=== PATIENT | male | born 2000 | race Two or more races ===

== ENCOUNTER → 2022-08-22 08:51 | Outpatient (BNVA) | payer SELFPAY | PROVIDERS: PCP Family Medicine; Visit Provider Physician Assistant Medical | DX: Z02.79 Encounter for issue of other medical certificate (principal) ==

== ENCOUNTER 2023-08-19 22:04 | Emergency (ER) | payer OTHER, SELFPAY ==
--- NOTE | ~2023-08-19 | CT_ITS ---
EXAMINATION: CT ABDOMEN AND PELVIS WITHOUT CONTRAST CLINICAL INFORMATION: Left-sided abdominal pain COMPARISON: None available. TECHNIQUE: Multidetector volumetric imaging was performed from the superior aspect of the liver through the pubic symphysis. Sagittal and coronal reformatted images were obtained on the technologist's workstation. This CT examination was performed using dose optimization techniques as appropriate, variously including the following: *Automated exposure control *Adjustment of mA and/or kV according to patient size (this includes techniques or standardized protocols for targeted exams where dose is matched to indication/reason for exam; i.e. extremities or head) *Use of iterative reconstruction technique DLP: 465 mGy-cm FINDINGS: LUNG BASES: The visualized lung bases are unremarkable. LIVER, GALLBLADDER, AND BILIARY TREE: The liver is mildly enlarged at 18 cm in cephalocaudad dimension. Attenuation is normal. No focal hepatic lesion or biliary ductal dilatation is present. The gallbladder is unremarkable with no evidence of radiopaque gallstones, gallbladder wall thickening, or obvious pericholecystic inflammatory changes. PANCREAS: Unremarkable. SPLEEN: Spleen is mildly enlarged at 12.5 cm. ADRENAL GLANDS: Unremarkable. KIDNEYS AND URETERS: The kidneys are normal in size, shape, and attenuation. No hydronephrosis, hydroureter, or calculi seen. No perinephric stranding. BLADDER: Unremarkable. GASTROINTESTINAL TRACT: The small and large bowel are unremarkable. The appendix is unremarkable. ABDOMINAL WALL: No significant hernia is appreciated. LYMPH NODES: Normal. VASCULAR: Unremarkable. PELVIC VISCERA: Mildly prominent prostate. Seminal vesicles appear normal. OSSEOUS STRUCTURES: Unremarkable. CT/CT abdomen pelvis wo IV con IMPRESSION: 1. A cause for the patient's abdominal pain has not been found. 2. Incidental note made of mild hepatosplenomegaly. Fleischner guidelines were followed.
[2023-08-19 22:28] VITALS: BP 113/65; PULSE 69; RESP 18; TEMP 36.8; O2SAT 97; BMI 24.9
[2023-08-19 22:54] LABS: MANUAL DIFF FLAG NO
[2023-08-19 22:55] LABS: Basophils Percent Auto 0.4 % (0-2); Eosinophils Absolute Auto 0.2 X10*3/uL (0.0-0.4); Eosinophils Percent Auto 4.3 % (0-4); Hematocrit 42.2 % (42.0-52.0); Lymphocytes Percent Auto 36.3 % (20-40); Mean Corpuscular HGB Conc 30.8 g/dl (31.0-36.0); Mean Corpuscular Hemoglobin 22.8 pg (27.0-33.0); Mean Corpuscular Volume 73.9 fL (80.0-98.0); Mean Platelet Volume 10.2 fL (9.4-12.4); Monocytes Absolute Auto 0.5 X10*3/uL (0.1-1.2); Monocytes Percent Auto 9.1 % (2-11); Neutrophils Absolute Auto 2.8 x10*3/uL (2.0-8.3); Neutrophils Percent Auto 49.9 % (45-73); Platelet Count 188 X10*3/uL (160-400); Red Blood Count 5.71 X10*6/uL (4.60-5.80); Red Cell Distribution Width 12.6 % (11.0-16.0); White Blood Count 5.6 X10*3/uL (4.8-10.8)
[2023-08-19 22:56] LABS: Appearance Urine Clear; Color Urine Yellow; Glucose Urine UA Negative (Negative); Leukocyte Esterase Urine Negative (Negative); Nitrite Urine Negative (Negative); Specific Gravity - Urine >= 1.030 (1.005-1.025); UMIC TRIGGER UACC YES; Urine Blood Negative (Negative); Urine Ketones Trace mg/dL (Negative); Urine Protein 30 (1+) mg/dL (Neg-Trace)
[2023-08-19 23:01] LABS: Bacteria Urine None Seen (None Seen); Hyaline Casts Urine 0-2 /LPF (0-2); RBC Urine 0-2 /HPF (0-2); Squamous Epithelial Cell Urine 0-2 /HPF (0-2); WBC Urine 0-5 /HPF (0-5)
[2023-08-19 23:10] LABS: Anion Gap 12 (12-20)
--- NOTE | 2023-08-19 23:10 | ED.ABDPAIN ---
HPI - Abdominal Pain General Chief Complaint: Abdominal Pain Stated Complaint: abd pain Time Seen by Provider: 08/19/23 23:10 Source: patient Mode of arrival: ambulatory Limitations: no limitations History of Present Illness HPI narrative: Patient has significant past medical history noticed pain in the left middle lower abdomen for last 3 days increases after eating food no nausea no vomiting no diarrhea no fever or chills no urinary symptoms does have history of constipation but moving his bowels normally lately Related Data Allergies Allergy/AdvReac Type Severity Reaction Status Date / Time No Known Allergies Allergy Unverified 07/09/20 17:01 Review of Systems Review of Systems Yes all other systems are reviewed and are negative [facility] Social History Social History Advance Directives: No Advance Directives Information Provided: No Physical Exam ED Vital Signs: Vital Signs - 24 hr 08/19/23 22:28 Temperature 98.3 F Pulse Rate 69 Respiratory Rate 18 Blood Pressure 113/65 Pulse Oximetry 97 Oxygen Delivery Method Room Air BMI result Body Mass Index 24.9 Appearance: Alert. Oriented X3. No acute distress. Eyes: PERRLA, No Nystagmus ENT: Pharynx normal. Oral Mucosa moist Neck: Normal inspection. Neck supple. CVS: Normal heart rate and rhythm. Pulses normal. Respiratory: No respiratory distress. Equal air entry bilateral, no wheezing/rales/rhonchi Abdomen: Soft , dependence left lower quadrant and mid quadrant Bowel sounds are present, no mass palpable, no CVA tenderness Skin: Skin warm and dry. Normal skin color. Normal skin turgor. Extremities: No lower extremity edema. No calf tenderness Neuro: Oriented X 3. No motor deficit. Medical Decision Making Medical Decision Making [facility] Narrative: Patient was stable lab CT scan negative for acute likely have constipation as a cause for the pain , discharge patient home on stool softener Differential Diagnosis Differential Diagnoses: The differential diagnosis associated with the presentation includes Diverticulitis/constipation/nonspecific abdominal pain Lab Data [facility] Lab Attestation statement: I reviewed the patient's lab results. 08/19/23 22:49 08/19/23 22:49 Labs: Lab Results 08/19/23 Range/Units 22:49 WBC 5.6 (4.8-10.8) X10*3/uL RBC 5.71 (4.60-5.80) X10*6/uL Hgb 13.0 L (14.0-18.0) g/dl Hct 42.2 (42.0-52.0) % MCV 73.9 L (80.0-98.0) fL MCH 22.8 L (27.0-33.0) pg MCHC 30.8 L (31.0-36.0) g/dl RDW 12.6 (11.0-16.0) % Plt Count 188 (160-400) X10*3/uL MPV 10.2 (9.4-12.4) fL Immature Gran % (Auto) 0.0 (0.0-0.4) % Neut % (Auto) 49.9 (45-73) % Lymph % (Auto) 36.3 (20-40) % [place] % (Auto) 9.1 (2-11) % Eos % (Auto) 4.3 H (0-4) % Baso % (Auto) 0.4 (0-2) % Lymph # (Auto) 2.0 (1.2-4.9) X10*3/uL [place] # (Auto) 0.5 (0.1-1.2) X10*3/uL Eos # (Auto) 0.2 (0.0-0.4) X10*3/uL Baso # (Auto) 0.0 (0.0-0.2) X10*3/uL Abs Immat Gran (auto) 0.00 (0.00-0.03) X10*3/uL Absolute Neuts (auto) 2.8 (2.0-8.3) x10*3/uL Absolute Nucleated RBC 0.000 (0.0-0.012) X10*3/uL Nucleated RBC % (auto) 0.0 (0.0-0.2) /100WBC Sodium 138 (135-145) mmol/L Potassium 4.0 (3.3-5.1) mmol/L Chloride 109 H (96-108) mmol/L Carbon Dioxide 21 L (22-29) mmol/L Anion Gap 12 (12-20) BUN 23 H (9-16) mg/dL Creatinine 1.03 (0.5-1.4) mg/dL Estim Creat Clear Calc 113.2 Estimated GFR > 60 Random Glucose 101 (60-115) mg/dL Calcium 9.0 (8.4-10.2) mg/dL Total Bilirubin 0.7 (0.0-1.0) mg/dL Direct Bilirubin 0.2 (0.0-0.5) mg/dL AST 25 (5-37) U/L ALT 21 (0-40) U/L Alkaline Phosphatase 53 (39-117) U/L Total Protein 6.3 L (6.5-8.0) g/dL Albumin 4.0 (3.5-5.0) g/dL Lipase 22 (8-78) U/L Urine Color Yellow Urine Appearance Clear Urine pH 7.0 (5.0-9.0) Ur Specific [place] >= 1.030 H (1.005-1.025) Urine Protein 30 (1+) H (Neg-Trace) mg/dL Urine Glucose (UA) Negative (Negative) mg/dL Urine Ketones Trace (Negative) mg/dL Urine Blood Negative (Negative) Urine Nitrite Negative (Negative) Ur Leukocyte Esterase Negative (Negative) Urine RBC 0-2 (0-2) /HPF Urine WBC 0-5 (0-5) /HPF Ur Squamous Epith Cells 0-2 (0-2) /HPF Urine Bacteria None Seen (None Seen) Hyaline Casts 0-2 (0-2) /LPF Radiology Impression Discussion of test interpretation with radiology: I have reviewed the radiologist's reading. Radiologist Impression: CT/CT abdomen pelvis wo IV con IMPRESSION: 1. A cause for the patient's abdominal pain has not been found. 2. Incidental note made of mild hepatosplenomegaly. Fleischner guidelines were followed. Discharge Plan Discharge Clinical Impression: Constipation, Abdominal pain Patient Disposition: Home, Self-Care Instructions: Constipation (ED), Abdominal Pain (ED) Additional Instructions: Drink plenty of fluids Cause of abdominal pain is not very clear likely have constipation Take stool softener as advised
[2023-08-19 23:31] LABS: Alanine Aminotransferase 21 U/L (0-40); Alkaline Phosphatase 53 U/L (39-117); Aspartate Amino Transferase 25 U/L (5-37); Bilirubin Direct 0.2 mg/dL (0.0-0.5); Bilirubin Total 0.7 mg/dL (0.0-1.0); Blood Urea Nitrogen 23 mg/dL (9-16); Creatinine Clr Calc Pharmacy 113.2; Estimated Glomerular Filt Rate > 60; Lipase 22 U/L (8-78)
[2023-08-19 23:42] LABS: Carbon Dioxide 21 mmol/L (22-29); Chloride 109 mmol/L (96-108); Glucose Random 101 mg/dL (60-115); Sodium 138 mmol/L (135-145); Total Protein 6.3 g/dL (6.5-8.0)
[2023-08-20] MEDS: bisacodyL 5 MG TABLET.DR 10 MG PO (01:14)
[2023-08-20] MEDS: Milk of Magnesia 30 ML ORAL.SUSP PO (01:14)
[2023-08-20 01:15] VITALS: BP 128/71; PULSE 68; RESP 16; O2SAT 99
== END 2023-08-20 01:18 | disposition home or self-care (01) ==
PROVIDERS: Emergency Provider Internal Medicine
DX: K59.00 Constipation, unspecified (principal); R10.9 Unspecified abdominal pain
CPT/HCPCS: 36415; 74176; 80048; 80076; 81001; 83690; 85025; 99284

== ENCOUNTER 2024-10-22 09:08 | Outpatient (AMB) | payer OTHER, SELFPAY ==
--- NOTE | 2024-10-22 09:42 | MHC.OFFWIV ---
Intake Vital Signs 10/22/24 09:49 Height 5 ft 10 in Weight 168 lb 5 oz BMI 24.1 BP 118/70 Blood Pressure Location Rt brachial Position Sitting Pulse 104 H Pulse Source Pulse Oximeter Temp 98.8 F Temp Source Oral Pulse Oximetry (%) 97 Oxygen Delivery Method Room Air Intake Visit Reasons: [employer] Vomiting (car [phone] ) Intake Note: Patient here for vomiting since yesterday, unable to hold any food down. Patient Tobacco Use Status: Never used Tobacco Allergies No Known Allergies Allergy (Unverified 10/22/24 09:42) Do you need a note to return to daycare/school/sports/work: Yes HPI HPI Comments History of Present Illness Details This is a 24-year-old male with a past medical history of asthma presenting for evaluation of nausea and vomiting that he experienced yesterday. Patient states limited at least 8 times yesterday in his last episode of vomiting was last night. Patient denies having any nausea at this time but does report having a single episode of diarrhea this morning. Patient states that he had chills yesterday but denies having any fevers, cough, abdominal pain or dysuria today. Patient is requesting a work note to return to work tomorrow. [facility] Social History Unable to assess alcohol history related to: Unknown Patient Tobacco Use Status: Never used Tobacco Review of Systems Const All systems reviewed & are unremarkable except as noted in HPI and below Reports no additional complaints, Denies body aches, Reports chills (resolved), Denies fatigue and Denies fever(s) Eyes Reports as per HPI and Reports no additional complaints ENT Reports no additional complaints and Reports as per HPI Card Reports no additional complaints Resp Reports no additional complaints and Denies cough GI Reports as per HPI, Reports diarrhea, Reports nausea (resolved) and Reports vomiting (resolved) Denies dysuria and Denies urinary frequency Musc Reports no additional complaints Skin/Breast Reports system reviewed and no additional complaints, except as documented Psych Reports no additional complaints Endo Denies fatigue Physical Exam Vital Signs: Last Vital Signs Temp 98.8 F 10/22/24 09:49 Pulse 104 H 10/22/24 09:49 BP 118/70 10/22/24 09:49 Pulse Ox 97 10/22/24 09:49 Oxygen Delivery Method Room Air 10/22/24 09:49 BMI result Body Mass Index 24.1 Const General: cooperative, healthy appearing, comfortable, no acute distress, well developed, alert, awake and Physically active; No lethargic Nutritional Appearance: average body habitus Orientation/consciousness: patient oriented x3 and No lethargic Limitations: no limitations HEENT Head: Yes normal to inspection and Yes normocephalic Ears: hearing grossly normal bilaterally Face and sinus: Yes normal facial exam Mouth: Normal oral and palatal mucosa present and oropharynx normal Eyes General: appearance normal, both eyes and all related structures Resp Effort & Inspection: normal respiratory effort, able to speak in complete sentences, abnormal respiratory pattern, no audible wheezes, no cough and no respiratory distress Auscultation: clear to auscultation bilaterally Cardio Rate: regular rate Rhythm: regular rhythm GI Palpation (GI): Soft to palpation and nontender Auscultation: normal bowel sounds Skin General skin exam: no rashes or lesions noted Neuro General: patient oriented x3 Psych Appearance: grossly normal Mental Status: mental status grossly normal Insight: Good insight present (Psych) Judgement: Good judgement present (Psych) Assessment & Plan Assessment & Plan (1) Nausea vomiting and diarrhea: Comment: Patient is well-appearing and in no acute distress. Patient is requesting a work note to return to work tomorrow. Code(s): R11.2 - Nausea with vomiting, unspecified; R19.7 - Diarrhea, unspecified Plan: Patient is encouraged to stay well hydrated throughout the day today. Patient will return to work tomorrow. Coding Level of Care Code Est Pt Level 3 (50008) Diagnoses Nausea vomiting and diarrhea R11.2; R19.7 Time Spent (min) 20
[2024-10-22 09:49] VITALS: BP 118/70; PULSE 104; TEMP 37.1; O2SAT 97; BMI 24.1
== END 2024-10-22 10:05 | disposition home or self-care (01) ==
PROVIDERS: Visit Provider Physician Assistant
DX: R11.2 Nausea with vomiting, unspecified (principal); R19.7 Diarrhea, unspecified

== ENCOUNTER → 2024-10-22 09:08 | Outpatient (BNVA) | payer OTHER, SELFPAY | PROVIDERS: Visit Provider Physician Assistant ==

== ENCOUNTER 2025-10-06 16:02 | Outpatient (AMB) | payer OTHER, SELFPAY ==
--- NOTE | 2025-10-06 16:04 | MHC.PC.OV ---
Vital Signs 10/06/25 16:09 Height 5 ft 10 in Weight 156 lb 8 oz BMI 22.5 BP 114/64 Blood Pressure Location Rt brachial Position Sitting Respiration 16 Pulse 65 Pulse Source Pulse Oximeter Temp 98.2 F Temp Source Oral Pulse Oximetry (%) 99 Oxygen Delivery Method Room Air Intake Visit Reasons: HIGH VOLTAGE ELECTRICIAN-Stomach Pain Intake Note: Patient present to establish care. Clinical Courier Required: No Accompanied by: Self / Same As Patient Allergies No Known Allergies Allergy (Unverified 10/06/25 16:07) Medication List - Last Reconciled 10/06/25 by Lee Cheney MD pantoprazole 20 mg PO DAILY simethicone (Gas Relief (simethicone)) 180 mg PO BID PRN Tobacco use date assessed: 10/06/25 Dental Screening Dental Screen Date: 10/06/25 Did you have a dental visit in the last 12 months?: Yes Did you have a dental problem in the last 6 months where you did not have access to dental care?: No Was dental information given to patient?: Patient has dentist HPI HPI Comments History of Present Illness Details History of Present Illness The patient is a 25 year old male presenting with abdominal pain. Gastritis, unspecified: The patient reports a one-year history of abdominal pain that occurs every time he eats. The pain is localized to the epigastric area and radiates to his back. He also experiences gassiness, bloating, constipation, and diarrhea. He was previously hospitalized for the pain, but tests were normal and he was advised it was related to his diet. He was told to take medication for acid reflux, which provided relief. His diet mainly consists of junk food during the day. The patient reports being sexuall active, has no other medical history, takes no medications, denies smoking, alcohol and illicit drug use. Surgical History: - No prior surgeries. Medications: - Denies taking any regular medications. - Previously took stxu-pss-hnwknvv medication for acid reflux with relief. Social History: - Employment: The patient works as a regional refrigerated cdl truck driver. - Substance Use: Denies smoking, drinking alcohol, or using illicit drugs. - Nutrition: Reports typically skipping breakfast and consuming junk food during the day, eating a meal only upon returning home. - Sexually active: Yes. Family History: - No family history was discussed. Diagnostic Results: - No results were discussed from prior testing. Past Medical History - Denies any known medical history. - Reports one prior hospitalization for abdominal pain, during which tests were normal. Health Maintenance - The patient has not seen a doctor in a couple of years. - Discussed dietary modifications, including avoiding junk food, oily, and spicy foods, and incorporating proper nutrition through meal prepping. - Advised to increase intake of water, fruits, and greens. - Discussed eating habits, recommending eating slowly to avoid swallowing air. PFSH Medical History (Updated 10/06/25 @ 19:43 by Lee Cheney MD) Diarrhea Constipation Bloating symptom Gastritis Surgical History (Updated 10/06/25 @ 16:09 by Viraj Curry CMA) No pertinent past surgical history Social History (Updated 10/06/25 @ 16:09 by Viraj Curry CMA) Housing: Apartment Alcohol intake: never Patient Tobacco Use Status: Never used Tobacco e-Cigarette/Vaping Use: Never Used Second Hand Smoke Exposure: No service: No Current occupational status: employed Current occupation: regional refrigerated cdl truck driver Cognitive needs: No Hearing needs: No Vision needs: No Questionnaire PHQ-9 Over the last 2 weeks, how often have you been bothered by any of the following problems? 1. Little interest or pleasure in doing things: several days 2. Feeling down, depressed, or hopeless: several days 3. Trouble falling or staying asleep, or sleeping too much: several days 4. Feeling tired or having little energy: several days 5. Poor appetite or overeating: several days 6. Feeling bad about yourself - or that you are a failure or have let yourself or your family down: not at all 7. Trouble concentrating on things, such as reading the newspaper or watching television: not at all 8. Moving or speaking so slowly that other people could have noticed. Or the opposite - being so fidgety or restless that you have been moving around a lot more than usual: not at all 9. Thoughts that you would be better off or of hurting yourself in some way: not at all Total score: 5 Depression Screening Interpretation: Negative Depression Screening Done: Yes 98486 - PHQ-9 Billing: Yes Source: Developed by Drs. Agapito Neves, Julianne Weston, Tylor Pedraza and colleagues, with an educational bebo from [employer]. Thrive Questionnaire Date Thrive assessed: 10/06/25 I am a: Patient What is your living situation today?: I have a steady place to live Within the past 12 months, did the food you bought not last and you didn't have the money to get more?: Never true Within the past 12 months, did you worry whether your food would run out before you got money to buy more?: Never true Do you have trouble paying for medicines?: No Do you have trouble getting transportation to medical appointments?: No Do you have trouble paying your heating and electricity bill?: No Do you have trouble taking care of your child, family member or friend?: No Do you have trouble with day-to-day activities such as bathing, preparing meals, shopping, managing finances, etc.?: No Are you currently unemployed and looking for a job?: No Are you interested in more education?: No Please select the resources that you would like help with: None Currently or been in a relationship where the following occur: No concerns reported THRIVE Score: 0 AUDIT C Alcohol Use Questionnaire (AUDIT-C) 1. How often do you have a drink containing alcohol?: Never 2. How many drinks containing alcohol do you have on a typical day when you are drinking?: 1 or 2 3. How often do you have six or more drinks on one occasion?: Never Total Score: 0 MELISSA-7 AMB Questionnaire MELISSA-7 Date MELISSA - 7 assessed: 10/06/25 Feeling nervous, anxious, or on edge: 0 = Not at all Not being able to stop or control worryin = Not at all Worrying too much about different things: 0 = Not at all Trouble relaxin = Several days Being so restless that it is hard to sit still: 1 = Several days Becoming easily annoyed or irritable: 1 = Several days Feeling afraid as if something awful might happen: 1 = Several days Total MELISSA-7 score (0-4 normal; 5-9 mild; 10-14 moderate; 15-21 severe): 4 Source: Developed by Drs. Agapito Neves, Julianne Weston, Tylor Pedraza and colleagues, with an educational bebo from [employer]. MELISSA-7 Assessment Billing MELISSA-7 Assessment Tool: MELISSA-7 Assessment 94279 Review of Systems Narrative Review of Systems - Gastrointestinal: Reports abdominal pain after eating, which radiates to the back. - Reports being gassy and bloated. - Reports constipation and diarrhea. 10-point ROS reviewed and negative except as noted in HPI Physical exam (Primary Care) Vital Signs: Last Vital Signs Temp 98.2 F 10/06/25 16:09 Pulse 65 10/06/25 16:09 Resp 16 10/06/25 16:09 BP 114/64 10/06/25 16:09 Pulse Ox 99 10/06/25 16:09 Oxygen Delivery Method Room Air 10/06/25 16:09 BMI result Body Mass Index 22.5 Tobacco/Smoking Status: Tobacco use Status Tobacco use date assessed 10/06/25 10/06/25 16:11 Patient Tobacco Use Status Never used Tobacco 10/06/25 16:09 e-Cigarette/Vaping Use Never Used 10/06/25 16:11 PHQ-9: PHQ-9 Score PHQ-9: Total score 5 10/06/25 16:04 Depression Screening Interpretation: Negative Thrive Assessment: Date of Thrive Assessment Date Thrive assessed 10/06/25 10/06/25 16:04 Currently or been in a relationship where the following occur: No concerns reported Narrative Physical Exam General: Well-appearing, in no acute distress. Vital signs: Within normal limits. HEENT: Normocephalic, atraumatic. PERRLA, EOMI. Conjunctiva clear, sclera anicteric. Oropharynx clear, mucous membranes moist. TMs intact bilaterally. Neck: Supple, no lymphadenopathy, no thyromegaly, no JVD or carotid bruits. Cardiovascular: RRR, normal S1/S2, no murmurs, rubs, or gallops. Peripheral pulses 2+ and symmetric. No edema. Respiratory: Lungs clear to auscultation bilaterally, no wheezes, rales, or rhonchi. Normal effort. Abdomen: Soft, non-tender, non-distended. Normoactive bowel sounds. No hepatosplenomegaly, no masses. Reports pain in the stomach area, bloating, and occasional diarrhea. MSK: Full range of motion, no joint swelling or deformity. Normal gait. Skin: Warm, dry, intact. No rashes, lesions, or pallor. Neuro: Alert and oriented x3. Cranial nerves II-XII intact. Strength 5/5 throughout. Sensation intact. Reflexes 2+ symmetric. Normal coordination and gait. Psych: Appropriate mood and affect. Normal judgment and insight. Coding Level of Care Code New Pt Level 4 (46796) Add On Problem Visit Only Diagnoses Gastritis K29.70 Bloating symptom R14.0 Abdominal pain R10.9 Constipation K59.00 Diarrhea R19.7 Additional Codes MELISSA-7 Assessment Billing - MELISSA-7 Assessment Tool: MELISSA-7 Assessment 63390 ([id number]) PHQ-9 - 32378 - PHQ-9 Billing: Yes ([id number]) Assessment & Plan Assessment & Plan (1) Gastritis: Code(s): K29.70 - Gastritis, unspecified, without bleeding Category: Medical (2) Bloating symptom: Code(s): R14.0 - Abdominal distension (gaseous) Category: Medical (3) Abdominal pain: Code(s): R10.9 - Unspecified abdominal pain Category: Medical (4) Constipation: Code(s): K59.00 - Constipation, unspecified Category: Medical (5) Diarrhea: Code(s): R19.7 - Diarrhea, unspecified Category: Medical Plan Consent The patient consented to screening for Chlamydia and gonorrhea. Patient was informed and verbally consented to the use of an ambient scribe for clinic note documentation during this visit. Plan 1. Gastritis, Unspecified - The patient's symptoms are suggestive of gastritis. - Prescribed pantoprazole 20 mg to be taken once in the morning. - Recommended pppq-djl-bwlcikn Gas-X (simethicone) for bloating and gas. - Advised dietary changes, emphasizing proper nutrition, meal prepping, and avoidance of junk food to alleviate symptoms. - Instructed the patient to keep a food journal to identify potential triggers, such as lactose intolerance. - Follow up in two weeks to assess response to treatment. 2. Screening - Ordered lab tests to evaluate overall health and rule out nutritional deficiencies. - Labs ordered include a complete blood count (CBC), comprehensive metabolic panel (CMP), hemoglobin A1c, lipid panel, hepatitis B, hepatitis C, HIV, syphilis, thyroid studies, urinalysis, vitamin B12, folate, and vitamin D. - With the patient's consent, testing for Chlamydia and gonorrhea was also ordered. Discussion Notes I discussed with the patient that his symptoms of abdominal pain, bloating, and constipation are likely due to gastritis, exacerbated by his diet, which consists mainly of junk food. I explained that improving his nutrition through meal prepping and avoiding oily or spicy foods could significantly relieve his symptoms. I have prescribed pantoprazole 20 mg daily to suppress acid and recommended huzy-hdu-kfrrjpj Gas-X for his bloating. I also advised him to keep a food journal to identify any specific food triggers. We reviewed the plan to obtain comprehensive lab work, including screening for STIs, to assess for any underlying nutritional deficiencies or other issues. I reassured him that at his age of 25 and with no risk factors, a condition like colon cancer is highly unlikely. A follow-up appointment is scheduled in two weeks to review the lab results and his response to the medication and dietary changes. Patient Instructions - Take pantoprazole 20 mg once every morning for your stomach pain. - You can use an rnly-rbb-fxahkfu medicine called Gas-X (simethicone) for gas and bloating. - Change your diet to include healthier foods and avoid junk food, spicy foods, and oily foods. - Consider preparing your meals in advance (meal prep) so you have healthy options while you are on the go. - Drink plenty of water and eat more fruits and green vegetables. - Keep a food diary to track what you eat and see if any specific foods make your symptoms worse. - Go to the lab to have your blood and urine tests done. - Schedule a follow-up appointment in two weeks. Medical Decision Making The patient is a 25-year-old male with a one-year history of postprandial epigastric pain radiating to the back, associated with bloating, gas, constipation, and diarrhea. His symptoms are highly suggestive of gastritis, likely exacerbated by his diet of junk food and irregular eating patterns. The positive response to a previous trial of acid-suppressing medication further supports this diagnosis. While the patient expressed concern for colon cancer, this is extremely unlikely given his young age and lack of risk factors. The initial management plan involves a trial of pantoprazole 20 mg daily to control acid, alongside significant dietary counseling focused on improving nutrition and avoiding trigger foods. Comprehensive lab work, including CBC, CMP, and nutritional markers like B12 and vitamin D, has been ordered to screen for anemia or other sequelae of his poor diet. Screening for common STIs was also included after confirming he is sexually active. Follow-up in two weeks will be crucial to assess his clinical response and review lab results, guiding further management. Total Time Statement 30 min Total time spent caring for the patient today includes pre-visit chart review, documentation, review of laboratory and diagnostic imaging results, medication reconciliation, medically necessary evaluation, counseling on diagnoses, care coordination, ordering appropriate tests and medications, review of tests performed by other providers, reporting test results to the patient, and communication with other healthcare providers. Orders: Orders Complete Blood Count Auto Diff Today Z13.9 - Encounter for screening, unspecified Comprehensive Met. Panel Today Z13.9 - Encounter for screening, unspecified Hepatitis C Antibody Today Z13.9 - Encounter for screening, unspecified TSH reflex Free T4 Today Z13.9 - Encounter for screening, unspecified HIV Ab/Ag Today Z13.9 - Encounter for screening, unspecified Lipid Panel Today Z13.9 - Encounter for screening, unspecified Hemoglobin A1c Today Z13.9 - Encounter for screening, unspecified Hepatitis B Surface Antibody Today Z13.9 - Encounter for screening, unspecified Vitamin D 25-OH (D2 and D3) Today Z13.9 - Encounter for screening, unspecified Hepatitis B Surface Antigen Today Z13.9 - Encounter for screening, unspecified Syphilis Screen Today Z13.9 - Encounter for screening, unspecified UA CC w/rflx Micro + Cult Today Z13.9 - Encounter for screening, unspecified Vitamin B12 and Folate Today Z13.9 - Encounter for screening, unspecified Magnesium Today Z13.9 - Encounter for screening, unspecified Medications: New simethicone (Gas Relief (simethicone)) 180 mg PO BID PRN 30 caps 0RF abdominal distention pantoprazole 20 mg PO DAILY 60 tabs 0RF
[2025-10-06 16:09] VITALS: BP 114/64; PULSE 65; RESP 16; TEMP 36.8; O2SAT 99; BMI 22.5
--- OUTSIDE RECORDS SUMMARY | 2025-10-06 22:25 | XMS_ITS | Clinical Summary ---
Author Organization [employer] Address [address] [facility] [address] [place] [address] Care Team Providers Care Physical Integration Practitioner Name Role Phone [facility] Primary Care Provider [phone] Allergies No known active allergies Medications omeprazole (PriLOSEC) [address] Mills ons:Heartburn TAKE 1 CAPSULE BY MOUTH EVERY DAY BEFORE BREAKFAST DO NOT CRUSH OR CHEW 90 capsule Active Active Problems No known active problems Social History Tobacco Use Types Packs/Day Years Used Date Smoking Tobacco: Never Smokeless Tobacco: Never Tobacco Cessation:Counseling Given: Not Answered Sex and Gender Information Value Date Recorded Sex Assigned at Male 08/22/2022 10:16 AM EDT Legal Sex Male 10:16 AM EDT Gender Identity Male 08/22/2022 10:16 AM EDT Sexual Orientation Straight 08/22/2022 10 :16 AM EDT Last Filed Vital Signs Vital Sign Reading Time Taken Comments Blood Pressure 109/72 11/01/2022 10:41 AM EST Pulse 66 11/01/2022 10:41 AM EST Temperature 36.7 C (98 F) 11/01/2022 10:41 AM EST Respiratory Rate 17 11/01/2022 10:41 AM EST Oxygen Saturation 98% 11/01/2022 10:41 AM EST Inhaled Oxygen Concentration - - Weight 71.3 kg (157 lb 3.2 oz) 11/01/2022 10:41 AM EST Height 177.8 cm (5' 10 ) 11/01/2022 10:41 AM EST Body Mass Index 22.56 11/01/2022 10:41 AM EST Plan of Treatment Health Maintenance Due Date Last Done Comments Depression Screening 1998 HIV Screening 1998 SDOH Screening 1998 Disability Screening 1998 Alcohol/Substance Use Screening 2010 Family Planning (PISQ) 2013 Hepatitis C Screening 02/16/2016 Pneumococcal Vaccine: Pediatrics (0 to 5 Years) and At-Risk Patients (6 to 49) Years (2 of 2 - PCV) 12/08/2018 12/08/2017 Tobacco Screening 11/01/2023 11/01/2022 COVID-19 Vaccine (1 - season) 2025 Influenza Vaccine (#1) 2025 8, 09/12/2016, 08/04/2015, Additional history exists DTaP/Tdap/Td Vaccines (8 - Td or Tdap) 03/05/2031 03/05/2021, 09/03/2009, 04/12/2002, Additional history exists Zoster Vaccines (1 of 2) 02/16/2048 RSV Patients and Patients Aged 60 years or older (1 - 1-dose 75+ series) 2073 Hepatitis B Vaccines Completed 1998, 1998, 1998 HIB Vaccines Completed 05/20/1999, 08/25, 1998, Additional history exists IPV Vaccines Completed 02/20/2002, 08/25, 1998, Additional history exists HPV Vaccines Completed 03/12/2013, 01/23, 08/10/2011 Hepatitis A Vaccines Completed 05/06/2014, 03/12/20 13 Meningococcal Vaccine Completed 05/08/2015, 009 Meningococcal B Vaccine Aged Out No l onger eligible based on patient's age to complete this topic RSV under 20 months Aged Out No longe r eligible based on patient's age to complete this topic Rotavirus Vaccines Aged Out No longer eligible based on patient's age to complete this topic Insurance BCBS Care Teams Physical Integration Practitioner Relationship Specialty Start Date End Date Rebecca Babin FNP [address] [place] [id number] PCP - General Family Medicine 06/20/22
--- OUTSIDE RECORDS SUMMARY | 2025-10-06 22:25 | XMS_ITS | Encounter Summary ---
Author Organization [employer] Address [address] [facility] [address] [place] [address] Care Team Providers Care Drafter Engineering Name Role Phone [place] [facility] Primary Care Provider [phone] Reason for Visit * Reason Onset Date Comments Nurse Triage 06/19/2023 Encounter Details Date Type Department Care Team ([facility] st Contact Info) Description 06/19/2023 Telephone [facility] [address] [place] [address] [facility] [address] [place] [address] Nurse Triage Social History Tobacco Use Types Packs/Day Years Used Date Smoking Tobacco: Never Smokeless Tobacco: Never Sex and Gender Information Value Date Recorded Sex Assigned at Male 08/22/2022 10:16 AM EDT Legal Sex Male 10:16 AM EDT Gender Identity Male 08/22/2022 10:16 AM EDT Sexual Orientation Straight 08/22/2022 10 :16 AM EDT documented as of this encounter Miscellaneous Notes * Telephone Encounter - Shital Grimes RN - 06/19/2023 4:54 PM EDT Triage call Pt reports small amount of blood mixed with stool. Pt denies constipation, hemorrhoids or eating anything red. Pt does report some constipation last week but that has resolved. Pt has never had blood in the stool before. Pt denies dizziness, weakness, urinary symptoms. Pt denies abdominal pain and heart burn has been managed well. Pt is advised to continue to observe for further bloodin stool, come to WIC today and Pt agrees . Hours for WIC this week 830am -800pm mon, mon, mon, 830am-400pm , monday. Protocol Used: Stools - Blood In Protocol-Based Disposition: See in Office or Video Visit Today Video visit not offered Positive Triage Question: * Small amount of blood in stools and not previously diagnosed * All higher-acuity triage questions were negative Care Advice Discussed: * Reassurance and Education - Anal Fissure * Warm Saline Baths * Steroid Ointment for Irritation * Expected Course * Reasons To Call Back - Bleeding increases in amount - Small bleeding occurs over 2 times - Your child becomes worse * Telephone Encounter - Love Peterson - 06/19/2023 3:17 PM EDT Symptom: Stools - Blood Mixed In Outcome: Schedule a same-day appointment or talk to a nurse or provider today Reason: Just a small amount of blood and patient feels normal (acts normal) The caller accepted this outcome Please contact pt at [phone] documented in this encounter Plan of Treatment Not on file documented as of this encounter Visit Diagnoses Not on filedocumented in this encounter Care Teams Drafter Engineering Relationship Specialty Start Date End Date Rebecca Babin FNP [address] [place] [id number] PCP - General Family Medicine 06/20/22 documented as of this encounter
== END 2025-10-06 16:28 | disposition home or self-care (01) ==
LOC: HO.HMCFMS 16:03
PROVIDERS: Visit Provider Student in an Organized Health Care Education/Training Program
DX: K29.70 Gastritis, unspecified, without bleeding (principal); R14.0 Abdominal distension (gaseous); R10.9 Unspecified abdominal pain; K59.00 Constipation, unspecified; R19.7 Diarrhea, unspecified

== ENCOUNTER → 2025-10-06 16:02 | Outpatient (BNVA) | payer OTHER, SELFPAY | PROVIDERS: Visit Provider Student in an Organized Health Care Education/Training Program | DX: Z13.31 Encounter for screening for depression (principal); Z13.39 Encounter for screening examination for other mental health and behavioral disorders | CPT/HCPCS: 96127 ==

== ENCOUNTER 2025-10-11 07:27 | Outpatient (REF) | payer OTHER, SELFPAY ==
--- OUTSIDE RECORDS SUMMARY | 2025-10-11 07:29 | XMS_ITS | Clinical Summary ---
Author Organization [employer] Address [address] [facility] [address] [place] [address] Care Team Providers Care Sand Technologist Name Role Phone [facility] Primary Care Provider [phone] Allergies No known active allergies Medications omeprazole [...] complete this topic Insurance [employer]BS Care Teams Sand Technologist Relationship Specialty Start Date End Date Rebecca Babin FNP [address] [place] [phone] PCP - General Family Medicine 06/20/22
--- OUTSIDE RECORDS SUMMARY | 2025-10-11 07:29 | XMS_ITS | Encounter Summary ---
Author Organization [employer] Address [address] [facility] [address] [place] [address] Care Team Providers Care Ring Sorter Name Role Phone [place] [facility] Primary Care Provider [phone] Reason for Visit * Reason Onset Date Comments Nurse Triage 06/19/2023 Encounter Details Date Type Department Care Team ([facility] st Contact Info) Description 06/19/2023 Telephone [facility] [address] [place] [address] [facility] [address] [place] [address] Nurse Triage Social History Tobacco Use Types [...] accepted this outcome Please contact pt at [phone] documented in this encounter Plan of Treatment Not on file documented as of this encounter Visit Diagnoses Not on filedocumented in this encounter Care Teams Ring Sorter Relationship Specialty Start Date End Date Rebecca Babin FNP [address] [place] [id number] PCP - General Family Medicine 06/20/22 documented as of this encounter
[2025-10-11 07:42] LABS: MANUAL DIFF FLAG NO
[2025-10-11 08:03] LABS: Hematocrit 44.3 % (42.0-52.0); Hemoglobin 13.7 g/dl (14.0-18.0); Imm Gran Abs Auto 0.01 X10*3/uL (0.00-0.03); Imm Gran Pct Auto 0.3 % (0.0-0.4); Lymphocytes Absolute Auto 1.0 X10*3/uL (1.2-4.9); Mean Corpuscular HGB Conc 30.9 g/dl (31.0-36.0); Mean Corpuscular Hemoglobin 22.6 pg (27.0-33.0); Mean Corpuscular Volume 73.1 fL (80.0-98.0); NRBC Abs Auto 0.000 X10*3/uL (0.0-0.012); NRBC Pct Auto 0.0 /100WBC (0.0-0.2); Platelet Count 215 X10*3/uL (160-400); Red Blood Count 6.06 X10*6/uL (4.60-5.80); White Blood Count 3.5 X10*3/uL (4.8-10.8)
[2025-10-11 08:14] LABS: Appearance Urine Clear; Glucose Urine UA Negative (Negative); PH 5.5 (5.0-9.0); Specific Gravity - Urine >= 1.030 (1.005-1.025); UMIC TRIGGER UACC YES
[2025-10-11 08:36] LABS: Alanine Aminotransferase 38 U/L (0-40); Albumin Level 4.6 g/dL (3.5-5.0); Alkaline Phosphatase 63 U/L (39-117); Anion Gap 10 (12-20); Aspartate Amino Transferase 34 U/L (5-37); Blood Urea Nitrogen 18 mg/dL (9-16); Calcium 9.4 mg/dL (8.4-10.2); Carbon Dioxide 28 mmol/L (22-29); Chloride 107 mmol/L (96-108); Cholesterol 136 mg/dL (<200); Estimated Glomerular Filt Rate > 60; HDL Cholesterol 59 mg/dL (>40); Magnesium 2.0 mg/dL (1.6-2.6); Potassium 4.2 mmol/L (3.3-5.1); Sodium 141 mmol/L (135-145); Total Protein 6.5 g/dL (6.5-8.0); Triglycerides 32 mg/dL (<150)
[2025-10-11 09:04] LABS: Folate 7.6 ng/mL (> or = 4.0); Vitamin B12 313 pg/mL (200-900)
[2025-10-13 03:57] LABS: Syphilis Screen Nonreactive (Nonreactive)
[2025-10-13 04:16] LABS: HBS Num1 2.38 mIU/mL (0-7.99); HBsAGNum1 0.46 S/CO (0.00-0.99); HIV Num 1 0.10 S/CO (0.00-0.99); Hepatitis B Surface Antigen Negative (Negative); ~HepC Num1 0.71 S/CO (0.00-0.79); ~Hepatitis B Surface Antibody NONREACTIVE (Nonreactive); ~Hepatitis C Antibody Nonreactive (Nonreactive)
== END 2025-10-11 07:28 | disposition home or self-care (01) ==
LOC: HO.LAB 07:27
PROVIDERS: PCP Student in an Organized Health Care Education/Training Program; Visit Provider Student in an Organized Health Care Education/Training Program
DX: Z13.29 Encounter for screening for other suspected endocrine disorder (principal); Z11.4 Encounter for screening for human immunodeficiency virus [HIV]; Z13.1 Encounter for screening for diabetes mellitus; Z13.21 Encounter for screening for nutritional disorder; Z13.6 Encounter for screening for cardiovascular disorders; Z13.89 Encounter for screening for other disorder
CPT/HCPCS: 36415; 80053; 80061; 81001; 82306; 82607; 82746; 83036; 83735; 84443; 85025; 86706; 86780; 86803; 87340; 87389